=== PATIENT | female | born 1995 | race Caucasian/White ===

== ENCOUNTER 2017-10-30 12:51 | Emergency (ER) | payer MEDICAID, SELFPAY ==
[2017-10-30 13:50] VITALS: BP 116/76; PULSE 84; RESP 16; TEMP 36.8; O2SAT 99; BMI 26.1
--- NOTE | 2017-10-30 14:17 | HMH.EDUTC ---
[facility] [place] Disposition Clinical Impression: Upper respiratory infection Qualifiers: URI type: unspecified URI Qualified Code(s): J06.9 - Acute upper respiratory infection, unspecified Disposition: Home, Self-Care Condition on Discharge: Good Instructions: Cough, DI for Cough -- Adult, DI for Nasal Congestion Additional Instructions: * Monitor Temp. Tylenol and/or Ibuprofen as needed. ER if fever is no less than 101 despite alternating Tylenol and Ibuprofen * Encourage fluids, water, Gatorade, powerade, pedialyte if infant/toddler/or child * Warm salt water gargles for throat irritation *Warm fluids *Sore throat lozenges *Sleep elevated *humidifier or vaporizer Lots of rest Increase fluids, water, Gatorade, powerade *Bromfed may cause drowsiness. Know how it effect you or your child. Before driving, caring for small children or sending your child to school *Your throat swab was sent to lab for culture. Those results area typically sent to your primary care physician. Be sure to follow up in 2-3 days if no improvement so they can review those results and treat if necessary If you dont have primary care I recommend you get one, but in the mean time you will have to return to a walk in clinic Follow up IMMEDIATELY for new or worsening of symptoms OR no noticeable improvement over the next 48-72 hours. 911 immediately for any life threatening symptoms such as chest pain or difficulty breathing Prescriptions: Azithromycin [Z-Daniele 250mg Tab] 250 mg PO UD DOSE PK #6 tab Brompheniramine/Pseudoephed/Dm [Bromfed DM Cough Syrup 5mL] 10 ml PO Q4H PRN #200 syrup PRN Reason: Cough predniSONE [Prednisone 20mg Tab] 20 mg PO BID #10 tab Forms: Work/School Release Time of Disposition: 14:52 Medical Decision Making Vital Signs: 10/30/17 13:50 Temperature 98.3 F Temperature Source Temporal Artery Scan Pulse Rate [Right] 84 Respiratory Rate 16 Blood Pressure [Right Arm] 116/76 Blood Pressure Mean [Right Arm] 89 Blood Pressure Source [Right Arm] Automatic Cuff Blood Pressure Position [Right Arm] Sitting 02 Sat by Pulse Oximetry 99 Oxygen Delivery Method Room Air - Lab Data Lab Results 10/30/17 14:25: Influenza Type A Ag Negative, Influenza Type B Ag Negative Orders (Tests/Meds): ORDERS Category Date Time Status Chest XR 2 view (NOT portable) [XR chest 2V] Stat Exams 10/30/17 14:25 Taken - Radiology Data #1 Image(s): Chest Image Reviewed: Yes I reviewed the patient's radiology image Preliminary Findings: Normal/NAD (Will follow up with for official reading) - Feliberto Inquiry Pt receiving controlled substance: No Feliberto was queried for this patient: No [facility] [place] HPI - General Stated complaint: [place] congestion fever Mode of Arrival: Ambulatory Source of Information: Patient Limitations: No Limitations Description of Symptoms (Recalled from Triage Doc. 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
--- NOTE | 2017-10-30 14:25 | XR_ITS ---
XR chest 2V HISTORY: ITS.REASON: COUGH ORDERING PHYSICIAN: Sylvia Herrera PATIENT AGE: 22 years COMPARISON: 06/19/2014 FINDINGS: The cardiomediastinal silhouette and pulmonary vascularity are within normal limits. The lungs are clear without infiltrates, suspicious nodules, or pleural effusions. No acute bony abnormalities. IMPRESSION: Negative chest, no acute finding
--- NOTE | 2017-10-30 14:25 | ED_ITS ---
[facility] [place] Clinical Impression: Upper respiratory infection Qualifiers: URI type: unspecified URI Qualified Code(s): J06.9 - Acute upper respiratory infection, unspecified Disposition: Home, Self-Care Condition on Discharge: Good Instructions: Cough, DI for Cough -- Adult, DI for Nasal Congestion Additional Instructions: * Monitor Temp. Tylenol and/or Ibuprofen as needed. ER if fever is no less than 101 despite alternating Tylenol and Ibuprofen * Encourage fluids, water, Gatorade, powerade, pedialyte if infant/toddler/or child * Warm salt water gargles for throat irritation *Warm fluids *Sore throat lozenges *Sleep elevated *humidifier or vaporizer Lots of rest Increase fluids, water, Gatorade, powerade *Bromfed may cause drowsiness. Know how it effect you or your child. Before driving, caring for small children or sending your child to school *Your throat swab was sent to lab for culture. Those results area typically sent to your primary care physician. Be sure to follow up in 2-3 days if no improvement so they can review those results and treat if necessary If you don? t have primary care I recommend you get one, but in the mean time you will have to return to a walk in clinic Follow up IMMEDIATELY for new or worsening of symptoms OR no noticeable improvement over the next 48-72 hours. 911 immediately for any life threatening symptoms such as chest pain or difficulty breathing Prescriptions: Azithromycin [Z-Daniele 250mg Tab] 250 mg PO UD DOSE PK #6 tab Brompheniramine/Pseudoephed/Dm [Bromfed DM Cough Syrup 5mL] 10 ml PO Q4H PRN # 200 syrup PRN Reason: Cough predniSONE [Prednisone 20mg Tab] 20 mg PO BID #10 tab Forms: Work/School Release Time of Disposition: 14:52 Medical Decision Making Vital Signs: 10/30/17 13:50 Temperature 98.3 F Temperature Source Temporal Artery Scan Pulse Rate [Right] 84 Respiratory Rate 16 Blood Pressure [Right Arm] 116/76 Blood Pressure Mean [Right Arm] 89 Blood Pressure Source [Right Arm] Automatic Cuff Blood Pressure Position [Right Arm] Sitting 02 Sat by Pulse Oximetry 99 Oxygen Delivery Method Room Air - Lab Data Lab Results 10/30/17 14:25: Influenza Type A Ag Negative, Influenza Type B Ag Negative Orders (Tests/Meds): ORDERS Category Date Time Status Chest XR 2 view (NOT portable) [XR chest 2V] Stat Exams 10/30/17 14:25 Taken - Radiology Data #1 Image(s): Chest Image Reviewed: Yes I reviewed the patient's radiology image Preliminary Findings: Normal/NAD (Will follow up with for official reading) - Feliberto Inquiry Pt receiving controlled substance: No Feliberto was queried for this patient: No [facility] [place] - General Stated complaint: [place] congestion fever Mode of Arrival: Ambulatory Source of Information: Patient Limitations: No Limitations Description of Symptoms (Recalled from Triage Doc. by RN): COUGH, CONGESTION ACHES X2 DAYS HEENT Symptoms (Recalled from RN notes): Yes Resp Symptoms (Recalled from RN notes): No Skin Symptoms (Recalled from RN notes): No MS Symptoms (Recalled from RN notes): No Functional Status (Recalled from RN notes): N - History of Present Illness Provider Complaint: Patient state that she has been having cough and congestion that has continued to get worse State that she feels like she may have some chest congestion, non-productive cough, sinus pain and pressure along with sore throat State that she works
[2017-10-30 14:41] LABS: UTC Influenza A Antigen Negative (Negative); UTC Influenza B Antigen Negative (Negative)
== END 2017-10-30 14:57 | disposition home or self-care (01) ==
PROVIDERS: Emergency Provider Nurse Practitioner; Family Provider Family Medicine
DX: J06.9 Acute upper respiratory infection, unspecified (principal)
CPT/HCPCS: 71046; 87804; 99202

== ENCOUNTER 2017-11-21 20:14 | Emergency (ER) | payer BC, MEDICAID, SELFPAY ==
[2017-11-21 21:18] VITALS: BP 140/89; PULSE 96; RESP 20; TEMP 36.8; O2SAT 100; BMI 24.2
--- NOTE | 2017-11-21 21:43 | HMH.EDUTC ---
[facility] [place] Disposition Clinical Impression: Rib pain on right side Disposition: Home, Self-Care Condition on Discharge: Good Additional Instructions: Take medication as prescribed Follow up with family doctor If pain persists Follow up with family doctor for rib xray as advised today in [facility] or return for xray Return to [facility] if needed Prescriptions: Ibuprofen [Ibuprofen 800mg Tab] 800 mg PO Q8HP PRN #20 tab PRN Reason: Moderate Pain Cyclobenzaprine HCl [Flexeril 10mg tablet] 10 mg PO TID PRN #15 tab PRN Reason: Muscle Spasm Forms: Work/School Release Time of Disposition: 21:58 Medical Decision Making - Medical Records Medical records reviewed: Yes: I reviewed the patient's medical records. Vital Signs: 11/21/17 21:18 Temperature 98.3 F Temperature Source Temporal Artery Scan Pulse Rate [Right] 96 H Respiratory Rate 20 Blood Pressure [Right Arm] 140/89 Blood Pressure Mean [Right Arm] 106 Blood Pressure Source [Right Arm] Automatic Cuff Blood Pressure Position [Right Arm] Sitting 02 Sat by Pulse Oximetry 100 Oxygen Delivery Method Room Air - Feliberto Inquiry Pt receiving controlled substance: No Feliberto was queried for this patient: No - Reevaluation(s) Time: 21:53 (Recommended rib xray, patient denies injury and refused State that she feels like she has a pulled muscle) [facility] [place] HPI - General Stated complaint: Rib Pain Mode of Arrival: Ambulatory Source of Information: Patient Limitations: No Limitations Description of Symptoms (Recalled from Triage Doc. by RN): RIB PAIN X3 WKS, DENIES INJURY HEENT Symptoms (Recalled from RN notes): No Resp Symptoms (Recalled from RN notes): No Skin Symptoms (Recalled from RN notes): No MS Symptoms (Recalled from RN notes): Yes Functional Status (Recalled from RN notes): N - History of Present Illness Provider Complaint: Patient state that she lifts and pulls at work States that she has noticed that for the last 3 weeks she has been having pian in her right side/rib area States that it feels like a pulled muscle States that she noticed a small bruise on her right ribs but does not recall hitting anything, denies trouble breathing states that pain worse when she touches area or lifts her hands Denies known injury - Related Data Previous Rx's Medication Instructions Recorded Azithromycin [Z-Daniele 250mg Tab] 250 mg PO UD DOSE PK #6 tab 10/30/17 Brompheniramine/Pseudoephed/Dm 10 ml PO Q4H PRN #200 syrup 10/30/17 [Bromfed DM Cough Syrup 5mL] predniSONE [Prednisone 20mg 20 mg PO BID #10 tab 10/30/17 Tab] Cyclobenzaprine HCl [Flexeril 10mg 10 mg PO TID PRN #15 tab 11/21/17 tablet] Ibuprofen [Ibuprofen 800mg Tab] 800 mg PO Q8HP PRN #20 tab 11/21/17 Allergies Allergy/AdvReac Type Severity Reaction Status Date / Time No Known Allergies Allergy Verified 10/30/17 13:54 - Worker's Comp Is this a Worker's Comp case?: No [facility] History I have reviewed the patient's past medical history: Yes Other Surgeries: Yes: No Previous Surgery - *Social History Smoking Status: Never smoker Alcohol Intake: never - Psychiatric History Expresses thoughts of harming self/others: None Suicide Plan Description: No Plan *Family Hx:: Cancer ROS Obtained: Yes All systems reviewed & no additional complaints Physical Exam - General General appearance: alert, in no apparent distress - ENT ENT exam: Present: normal exam - Chest Chest inspection: Present: other - Expanded Chest Exam Comment: Small quarter sized area on right lower rib area that appears to be healing bruise yellowish green in color, no swelling no deformities - Respiratory Respiratory exam: Present: normal lung sounds bilaterally. Absent: respiratory distress - Cardiovascular Cardiovascular exam: Present: regular rate, normal rhythm. Absent: JVD - Abdominal Exam Abdominal exam: Present: soft, normal bowel sounds. Absent: distention, tenderness, guarding - Neurological Exam
--- NOTE | 2017-11-21 21:51 | ED_ITS ---
[facility] [place] Disposition Clinical Impression: Rib pain on right side Disposition: Home, Self-Care Condition on Discharge: Good Additional Instructions: Take medication as prescribed Follow up with family doctor If pain persists Follow up with family doctor for rib xray as advised today in [facility] or return for xray Return to [facility] if needed Prescriptions: Ibuprofen [Ibuprofen 800mg Tab] 800 mg PO Q8HP PRN #20 tab PRN Reason: Moderate Pain Cyclobenzaprine HCl [Flexeril 10mg tablet] 10 mg PO TID PRN #15 tab PRN Reason: Muscle Spasm Forms: Work/School Release Time of Disposition: 21:58 Medical Decision Making - Medical Records Medical records reviewed: Yes: I reviewed the patient's medical records. Vital Signs: 11/21/17 21:18 Temperature 98.3 F Temperature Source Temporal Artery Scan Pulse Rate [Right] 96 H Respiratory Rate 20 Blood Pressure [Right Arm] 140/89 Blood Pressure Mean [Right Arm] 106 Blood Pressure Source [Right Arm] Automatic Cuff Blood Pressure Position [Right Arm] Sitting 02 Sat by Pulse Oximetry 100 Oxygen Delivery Method Room Air - Feliberto Inquiry Pt receiving controlled substance: No Feliberto was queried for this patient: No - Reevaluation(s) Time: 21:53 (Recommended rib xray, patient denies injury and refused State that she feels like she has a pulled muscle) [facility] [place] HPI - General Stated complaint: Rib Pain Mode of Arrival: Ambulatory Source of Information: Patient Limitations: No Limitations Description of Symptoms (Recalled from Triage Doc. by RN): RIB PAIN X3 WKS, DENIES INJURY HEENT Symptoms (Recalled from RN notes): No Resp Symptoms (Recalled from RN notes): No Skin Symptoms (Recalled from RN notes): No MS Symptoms (Recalled from RN notes): Yes Functional Status (Recalled from RN notes): N - History of Present Illness Provider Complaint: Patient state that she lifts and pulls at work States that she has noticed that for the last 3 weeks she has been having pian in her right side/rib area States that it feels like a pulled muscle States that she noticed a small bruise on her right ribs but does not recall hitting anything, denies trouble breathing states that pain worse when she touches area or lifts her hands Denies known injury - Related Data Previous Rx's Medication Instructions Recorded Azithromycin [Z-Daniele 250mg Tab] 250 mg PO UD DOSE PK #6 tab 10/30/17 Brompheniramine/Pseudoephed/Dm 10 ml PO Q4H PRN #200 syrup 10/30/17 [Bromfed DM Cough Syrup 5mL] predniSONE [Prednisone 20mg 20 mg PO BID #10 tab 10/30/17 Tab] Cyclobenzaprine HCl [Flexeril 10mg 10 mg PO TID PRN #15 tab 11/21/17 tablet] Ibuprofen [Ibuprofen 800mg Tab] 800 mg PO Q8HP PRN #20 tab 11/21/17 Allergies Allergy/AdvReac Type Severity Reaction Status Date / Time No Known Allergies Allergy Verified 10/30/17 13:54 - Worker's Comp Is this a Worker's Comp case?: No [facility] History I have reviewed the patient's past medical history: Yes Other Surgeries: Yes: No Previous Surgery - *Social History Smoking Status: Never smoker Alcohol Intake: never - Psychiatric History Expresses thoughts of harming self/others: None Suicide Plan Description: No Plan *Family Hx:: Cancer ROS Obtained: Yes All systems reviewed & no additional complaints Physical Exam - General
== END 2017-11-21 21:48 | disposition home or self-care (01) ==
PROVIDERS: Emergency Provider Nurse Practitioner; Family Provider Family Medicine
DX: R07.81 Pleurodynia (principal)
CPT/HCPCS: 99201

== ENCOUNTER 2017-12-04 22:43 | Emergency (ER) | payer BC, MEDICAID, SELFPAY ==
[2017-12-04 22:47] VITALS: BP 140/73; PULSE 82; RESP 16; TEMP 36.7; O2SAT 99; BMI 23.3
--- NOTE | 2017-12-04 22:52 | CT_ITS ---
CT sinus wo con CLINICAL INDICATION: Severe frontal headache, possible sinus disease ITS.REASON: HEADACHE ORDERING PHYSICIAN: Kimo Oconnor MD PATIENT AGE: 22 years COMPARISON: None TECHNIQUE:Axial, sagittal, and coronal images are generated and reviewed without contrast COMPARISON: None FINDINGS: There is complete opacification of the left maxillary sinus. The sphenoid, ethmoid, and frontal sinuses are unremarkable. As obstruction of the left ostiomeatal complex with mild leftward nasal septal deviation noted. There are scattered small nodes in neck and the orbits have an unremarkable appearance as do the mastoid sinuses. IMPRESSION: Left maxillary sinusitis with obstructed ostiomeatal unit and mild leftward nasal septal deviation
--- NOTE | 2017-12-04 22:52 | CT_ITS ---
CT head/brain wo con HISTORY: Severe headache ITS.REASON: HEADACHE ORDERING PHYSICIAN: Kimo Oconnor MD PATIENT AGE: 22 years COMPARISON: None TECHNIQUE: Axial images obtained without contrast. Brain and bone windows reviewed. FINDINGS: No midline shift, mass effect, intracranial hemorrhage, hydrocephalus, or extra-axial fluid collection is evident. The calvarium has an unremarkable appearance. No mastoid effusion. Opacified left maxillary sinus... IMPRESSION: 1. No acute intracranial findings. 2. Left maxillary sinus opacification incompletely imaged. Consider maxillofacial CT for further evaluation
[2017-12-04 23:07] LABS: Microscopic, Urine URINE MICROSCOPIC (MICROSCOPIC)
[2017-12-04 23:09] LABS: Appearance,Urine CLEAR (Clear); Bilirubin,Urine Negative (Negative); Blood, Urine Negative (Negative); Color,Urine YELLOW (Yellow); Glucose,Urine (UA) Negative (Negative); Ketones,Urine Negative (Negative); Leukocyte Esterase,Urine Negative (Negative); Nitrate,Urine Negative (Negative); Protein,Urine Negative (Negative); Urobilinogen,Urine 0.2 EU/dl (0.2)
[2017-12-04 23:10] LABS: Basophils # 0.1 K/mm3 (0-0.2); Basophils % 0.7 % (0.1-2.0); Eosinophils # 0.3 K/mm3 (0.0-0.4); Eosinophils % 3.1 % (0.1-12.0); Hematocrit 37.5 % (37.0-47.0); Hemoglobin 12.4 g/dL (12.2-16.2); Lymphocytes # 2.8 K/mm3 (0.7-4.5); Lymphocytes % 34.8 K/mm3 (10-50); Mean Corpuscular HGB Conc 33.1 g/dL (31.8-35.4); Mean Corpuscular Volume 93.4 fl (81-99); Mean Platelet Volume 9.4 fl (7.4-10.4); Monocytes # 0.6 K/mm3 (0.1-1.0); Monocytes % 7.1 % (1.7-9.3); Neutrophils # 4.4 K/mm3 (1.8-7.8); Neutrophils % 54.3 % (37.0-80.0); Platelet Count 256 K/mm3 (142-424); Red Blood Count 4.01 M/mm3 (4.20-5.40); Red Cell Distribution Width 11.7 % (11.5-17.5); White Blood Count 8.1 K/mm3 (4.8-10.8)
[2017-12-04 23:16] LABS: Urine Pregnancy, HCG Qual. Negative (Negative)
[2017-12-04 23:26] LABS: Alanine Aminotransferase 17 U/L (12-78); Albumin Level 4.4 gm/dL (3.4-5.0); Albumin/Globulin Ratio 1.4 (1.1-1.8); Alkaline Phosphatase 47 U/L (46-116); Anion Gap 10.2 mEq/L (5-15); Aspartate Amino Transferase 12 U/L (15-37); Bilirubin,Total 0.2 mg/dL (0.2-1.0); Blood Urea Nitrogen 8 mg/dL (7-18); Calcium 8.8 mg/dL (8.5-10.1); Carbon Dioxide 29 mmol/L (21.0-32.0); Chloride 106 mmol/L (98-107); Creatinine Clearance Estimated 127 mL/min (0-300); Creatinine,Serum 0.71 mg/dL (0.55-1.02); Estimated Glomerular Filt Rate 101 ml/min (>60); GFR (African American) 122 ML/MIN (>60); Globulin 3.2 gm/dl (1.3-3.2); Glucose 105 mg/dL (74-106); Potassium 3.2 mmoL/L (3.5-5.1); Sodium 142 mmol/L (136-145); Total Protein,Serum 7.6 gm/dL (6.4-8.2)
--- NOTE | 2017-12-04 23:54 | HMH.EDHA ---
ED Disposition Clinical Impression: Sinusitis Qualifiers: Sinusitis location: maxillary Chronicity: unspecified Qualified Code(s): J32.0 - Chronic maxillary sinusitis Headache Qualifiers: Headache type: unspecified Headache chronicity pattern: acute headache Intractability: not intractable Qualified Code(s): R51 - Headache Disposition: Home, Self-Care Condition on Discharge: Good Instructions: DI for Sinus Headache Additional Instructions: see ent for follow up Prescriptions: cephALEXin [Keflex 500mg Cap] 500 mg PO TID #30 cap Referrals: Marc Geller MD [Staff Physician] - - Critical Care Critical Care Time: No Attestation: On 12/04/17, the high probability of a clinically significant, sudden or life threatening deterioration of the following system(s) required my full and direct attention, intervention and personal management. The time I documented below is in addition to time spent performing reported procedures but includes the following listed in this critical care notation. Medical Decision Making - Medical Records Medical records reviewed: Yes: I reviewed the patient's medical records. Vital Signs: 12/04/17 22:47 Temperature 98.1 F Temperature Source Oral Pulse Rate [Right Brachial] 82 Respiratory Rate 16 Blood Pressure [Right Arm] 140/73 Blood Pressure Mean [Right Arm] 95 Blood Pressure Source [Right Arm] Automatic Cuff Blood Pressure Position [Right Arm] Sitting 02 Sat by Pulse Oximetry 99 - Lab Data Lab results reviewed: Yes: I reviewed the patient's lab results. Lab Results 12/04/17 22:55: WBC 8.1, RBC 4.01 L, Hgb 12.4, Hct 37.5, MCV 93.4, MCH 31.0, MCHC 33.1, RDW 11.7, Plt Count 256, MPV 9.4, Neut % (Auto) 54.3, Lymph % (Auto) 34.8, [place] % (Auto) 7.1, Eos % (Auto) 3.1, Baso % (Auto) 0.7, Neut # (Auto) 4.4, Lymph # (Auto) 2.8, [place] # (Auto) 0.6, Eos # (Auto) 0.3, Baso # (Auto) 0.1 12/04/17 22:55: Urine HCG, Qual Negative 12/04/17 22:55: Sodium 142, Potassium 3.2 L, Chloride 106, Carbon Dioxide 29, Anion Gap 10.2, BUN 8, Creatinine 0.71, Estimated Creat Clear 127, Estimated GFR 101, Est GFR ( Amer) 122, Glucose 105, Calcium 8.8, Total Bilirubin 0.2, AST 12 L, ALT 17, Alkaline Phosphatase 47, Total Protein 7.6, Albumin 4.4, Globulin 3.2, Albumin/Globulin Ratio 1.4 12/04/17 23:01: Urine Color Yellow, Urine Appearance Clear, Urine pH 6.0, Ur Specific [place] 1.020, Urine Protein Negative, Urine Glucose (UA) Negative, Urine Ketones Negative, Urine Blood Negative, Urine Nitrate Negative, Urine Bilirubin Negative, Urine Urobilinogen 0.2, Ur Leukocyte Esterase Negative Result diagrams: 12/04/17 22:55 12/04/17 22:55 Orders (Tests/Meds): ED MEDICATIONS Generic Name Dose Route Start Last Admin Trade Name Freq PRN Reason Stop Dose Admin Ceftriaxone Sodium 1 gm/ 50 mls @ 100 mls/hr 12/05/17 00:04 12/05/17 00:12 Sodium Chloride IV 12/05/17 00:33 100 mls/hr ONCE ONE Administration Discontinued Medications Generic Name Dose Route Start Last Admin Trade Name Freq PRN Reason Stop Dose Admin Sodium Chloride 1,000 mls @ 999 mls/hr 12/04/17 23:15 12/04/17 23:05 Sod Chlor 0.9% 1000ml Bag IV 12/05/17 00:15 999 mls/hr .Q1H1M SOUTH Administration Ketorolac Tromethamine 30 mg 12/05/17 00:05 12/05/17 00:12 Toradol 30mg/Ml Vial IV 12/05/17 00:06 30 mg ONCE ONE Administration Methylprednisolone Sodium Succinate 125 mg 12/05/17 00:05 12/05/17 00:12 Solu-Medrol 125mg/2ml Vial IV 12/05/17 00:06 125 mg ONCE ONE Administration ORDERS Category Date Time Status CT head/brain wo con Stat Cat Scan 12/04/17 22:[address] sinus wo con Stat Cat Scan 12/04/17 22:52 Taken Monoscreen (Rapid) Stat Lab 12/05/17 00:02 Ordered Rapid Influenza A&B Antigens Stat Lab 12/04/17 00:00 Received Urinalysis and Microscopic Stat Lab 12/04/17 23:01 Results - CT Data CT Scan: Head, Sinus Time Received: 00:[address] Reviewed: Yes: I have viewed the ra
--- NOTE | 2017-12-05 00:02 | ED_ITS ---
ED Disposition Clinical Impression: Sinusitis Qualifiers: Sinusitis location: maxillary Chronicity: unspecified Qualified Code(s): J32.0 - Chronic maxillary sinusitis Headache Qualifiers: Headache type: unspecified Headache chronicity pattern: acute headache Intractability: not intractable Qualified Code(s): R51 - Headache Disposition: Home, Self-Care Condition on Discharge: Good Instructions: DI for Sinus Headache Additional Instructions: see ent for follow up Prescriptions: cephALEXin [Keflex 500mg Cap] 500 mg PO TID #30 cap Referrals: Marc Geller MD [Staff Physician] - - Critical Care Critical Care Time: No Attestation: On 12/04/17, the high probability of a clinically significant, sudden or life threatening deterioration of the following system(s) required my full and direct attention, intervention and personal management. The time I documented below is in addition to time spent performing reported procedures but includes the following listed in this critical care notation. Medical Decision Making - Medical Records Medical records reviewed: Yes: I reviewed the patient's medical records. Vital Signs: 12/04/17 22:47 Temperature 98.1 F Temperature Source Oral Pulse Rate [Right Brachial] 82 Respiratory Rate 16 Blood Pressure [Right Arm] 140/73 Blood Pressure Mean [Right Arm] 95 Blood Pressure Source [Right Arm] Automatic Cuff Blood Pressure Position [Right Arm] Sitting 02 Sat by Pulse Oximetry 99 - Lab Data Lab results reviewed: Yes: I reviewed the patient's lab results. Lab Results 12/04/17 22:55: WBC 8.1, RBC 4.01 L, Hgb 12.4, Hct 37.5, MCV 93.4, MCH 31.0, MCHC 33.1, RDW 11.7, Plt Count 256, MPV 9.4, Neut % (Auto) 54.3, Lymph % (Auto) 34.8, [place] % (Auto) 7.1, Eos % (Auto) 3.1, Baso % (Auto) 0.7, Neut # (Auto) 4.4 , Lymph # (Auto) 2.8, [place] # (Auto) 0.6, Eos # (Auto) 0.3, Baso # (Auto) 0.1 12/04/17 22:55: Urine HCG, Qual Negative 12/04/17 22:55: Sodium 142, Potassium 3.2 L, Chloride 106, Carbon Dioxide 29, Anion Gap 10.2, BUN 8, Creatinine 0.71, Estimated Creat Clear 127, Estimated GFR 101, Est GFR ( Amer) 122, Glucose 105, Calcium 8.8, Total Bilirubin 0.2, AST 12 L, ALT 17, Alkaline Phosphatase 47, Total Protein 7.6, Albumin 4.4, Globulin 3.2, Albumin/Globulin Ratio 1.4 12/04/17 23:01: Urine Color Yellow, Urine Appearance Clear, Urine pH 6.0, Ur Specific [place] 1.020, Urine Protein Negative, Urine Glucose (UA) Negative, Urine Ketones Negative, Urine Blood Negative, Urine Nitrate Negative, Urine Bilirubin Negative, Urine Urobilinogen 0.2, Ur Leukocyte Esterase Negative Result diagrams: 12/04/17 22:55 12/04/17 22:55 Orders (Tests/Meds): ED MEDICATIONS Generic Name Dose Route Start Last Admin Trade Name Freq PRN Reason Stop Dose Admin Ceftriaxone Sodium 1 gm/ 50 mls @ 100 mls/hr 12/05/17 00:04 12/05/17 00:12 Sodium Chloride IV 12/05/17 00:33 100 mls/hr ONCE ONE Administration Discontinued Medications Generic Name Dose Route Start Last Admin Trade Name Freq PRN Reason Stop Dose Admin Sodium Chloride 1,000 mls @ 999 mls/hr 12/04/17 23:15 12/04/17 23:05 Sod Chlor 0.9% 1000ml Bag IV 12/05/17 00:15 999 mls/hr .Q1H1M SOUTH Administration Ketorolac Tromethamine 30 mg 12/05/17 00:05 12/05/17 00:12 Toradol 30mg/Ml Vial IV 12/05/17 00:06 30 mg ONCE ONE Administration Meth
[2017-12-05 00:31] VITALS: BP 140/73; PULSE 82; RESP 16; TEMP 36.7
[2017-12-05 00:33] LABS: Monoscreen (Rapid) Negative (Negative)
[2017-12-05 01:03] LABS: Bacteria,Urine 1+ /lpf
== END 2017-12-05 00:33 | disposition home or self-care (01) ==
PROVIDERS: Emergency Provider Emergency Medicine; Family Provider Family Medicine
DX: J32.0 Chronic maxillary sinusitis (principal)
CPT/HCPCS: 70450; 70486; 80053; 81001; 81025; 85025; 86318; 87275; 87276; 96365; 96366; 96367; 96375; 99283

== ENCOUNTER 2018-01-02 14:14 | Emergency (ER) | payer BC, MEDICAID, SELFPAY ==
[2018-01-02 14:26] VITALS: BP 124/79; PULSE 120; RESP 20; TEMP 37.6; O2SAT 98; BMI 25.0
--- NOTE | 2018-01-02 14:38 | HMH.EDUTC ---
[facility] [place] Clinical Impression: Viral illness Disposition: Home, Self-Care Condition on Discharge: Good Instructions: Common Cold, DI for Viral Upper Respiratory Infection -- Adult Additional Instructions: * Monitor Temp. Tylenol and/or Ibuprofen as needed. ER if fever is no less than 101 despite alternating Tylenol and Ibuprofen * Encourage fluids, water, Gatorade, powerade, pedialyte if infant/toddler/or child * Warm salt water gargles for throat irritation *Warm fluids *Sore throat lozenges *Sleep elevated *humidifier or vaporizer Lots of rest Increase fluids, water, Gatorade, powerade *Bromfed may cause drowsiness. Know how it effect you or your child. Before driving, caring for small children or sending your child to school *Your throat swab was sent to lab for culture. Those results area typically sent to your primary care physician. Be sure to follow up in 2-3 days if no improvement so they can review those results and treat if necessary If you dont have primary care I recommend you get one, but in the mean time you will have to return to a walk in clinic Follow up IMMEDIATELY for new or worsening of symptoms OR no noticeable improvement over the next 48-72 hours. 911 immediately for any life threatening symptoms such as chest pain or difficulty breathing Prescriptions: Brompheniramine/Pseudoephed/Dm [Bromfed DM Cough Syrup 5mL] 10 ml PO Q4HP PRN #350 ml PRN Reason: Cough Referrals: Daniel Blevins MD [Primary Care Provider] - As needed (in 12-48 hours if no improvement or worsening of symptoms) Forms: Work/School Release Time of Disposition: 14:50 Medical Decision Making - Medical Records Medical records reviewed: Yes: I reviewed the patient's medical records. - Feliberto Inquiry Pt receiving controlled substance: No Feliberto was queried for this patient: No Vital Signs: 01/02/18 14:26 Temperature 99.6 F Temperature Source Temporal Artery Scan Pulse Rate [Right] 120 H Respiratory Rate 20 Blood Pressure [Right Arm] 124/79 Blood Pressure Mean [Right Arm] 94 Blood Pressure Source [Right Arm] Automatic Cuff Blood Pressure Position [Right Arm] Sitting 02 Sat by Pulse Oximetry 98 Oxygen Delivery Method Room Air - Lab Data Lab results reviewed: Yes: I reviewed the patient's lab results. [facility] [place] H[place] - General Stated complaint: sore throat Time Seen by Provider: 01/02/18 14:38 Mode of Arrival: Ambulatory Source of Information: Patient Limitations: No Limitations Description of Symptoms (Recalled from Triage Doc. by RN): CONGESTION, SORE THROAT, BODY ACHES HEENT Symptoms (Recalled from RN notes): Yes Resp Symptoms (Recalled from RN notes): No Skin Symptoms (Recalled from RN notes): No MS Symptoms (Recalled from RN notes): No Functional Status (Recalled from RN notes): N - History of Present Illness Provider Complaint: Pateint state that she has been having cough, congestion, body aches and chills State that she was recently seen and started on Antibiotics by Dr Geller State that she is not sure if she may have the flu or not and wanted to get checked out - Related Data Home Medications Medication Instructions Recorded Confirmed cephALEXin [Keflex 500mg Cap] 500 mg PO Q8H MDD 4000 01/02/18 01/02/18 Previous Rx's Medication Instructions Recorded Ibuprofen [Ibuprofen 800mg Tab] 800 mg PO Q8HP PRN #20 tab 11/21/17 fluticasone 50 mcg/actuation nasal 1 spray INTRANASAL ONCE 30 Days 12/31/17 spray,suspension #16 g montelukast 10 mg tablet 10 mg PO ONCE #30 tab 12/31/17 Brompheniramine/Pseudoephed/Dm 10 ml PO Q4HP PRN #350 ml 01/02/18 [Bromfed DM Cough Syrup 5mL] Allergies Allergy/AdvReac Type Severity Reaction Status Date / Time No Known Allergies Allergy Verified 12/31/17 15:24 - Worker's Comp Is this a Worker's Comp case?: No H History I have reviewed the patient's past medical history: Yes Medical History: Denies:: Diabetes Mellitus Type 1, Diabetes Mellitus
--- NOTE | 2018-01-02 14:44 | ED_ITS ---
[facility] [place] Clinical Impression: Viral illness Disposition: Home, Self-Care Condition on Discharge: Good Instructions: Common Cold, DI for Viral Upper Respiratory Infection -- Adult Additional Instructions: * Monitor Temp. Tylenol and/or Ibuprofen as needed. ER if fever is no less than 101 despite alternating Tylenol and Ibuprofen * Encourage fluids, water, Gatorade, powerade, pedialyte if infant/toddler/or child * Warm salt water gargles for throat irritation *Warm fluids *Sore throat lozenges *Sleep elevated *humidifier or vaporizer Lots of rest Increase fluids, water, Gatorade, powerade *Bromfed may cause drowsiness. Know how it effect you or your child. Before driving, caring for small children or sending your child to school *Your throat swab was sent to lab for culture. Those results area typically sent to your primary care physician. Be sure to follow up in 2-3 days if no improvement so they can review those results and treat if necessary If you don? t have primary care I recommend you get one, but in the mean time you will have to return to a walk in clinic Follow up IMMEDIATELY for new or worsening of symptoms OR no noticeable improvement over the next 48-72 hours. 911 immediately for any life threatening symptoms such as chest pain or difficulty breathing Prescriptions: Brompheniramine/Pseudoephed/Dm [Bromfed DM Cough Syrup 5mL] 10 ml PO Q4HP PRN # 350 ml PRN Reason: Cough Referrals: Daniel Blevins MD [Primary Care Provider] - As needed (in 12-48 hours if no improvement or worsening of symptoms) Forms: Work/School Release Time of Disposition: 14:50 Medical Decision Making - Medical Records Medical records reviewed: Yes: I reviewed the patient's medical records. - Feliberto Inquiry Pt receiving controlled substance: No Feliberto was queried for this patient: No Vital Signs: 01/02/18 14:26 Temperature 99.6 F Temperature Source Temporal Artery Scan Pulse Rate [Right] 120 H Respiratory Rate 20 Blood Pressure [Right Arm] 124/79 Blood Pressure Mean [Right Arm] 94 Blood Pressure Source [Right Arm] Automatic Cuff Blood Pressure Position [Right Arm] Sitting 02 Sat by Pulse Oximetry 98 Oxygen Delivery Method Room Air - Lab Data Lab results reviewed: Yes: I reviewed the patient's lab results. [facility] [place] HPI - General Stated complaint: sore throat Time Seen by Provider: 01/02/18 14:38 Mode of Arrival: Ambulatory Source of Information: Patient Limitations: No Limitations Description of Symptoms (Recalled from Triage Doc. by RN): CONGESTION, SORE THROAT, BODY ACHES HEENT Symptoms (Recalled from RN notes): Yes Resp Symptoms (Recalled from RN notes): No Skin Symptoms (Recalled from RN notes): No MS Symptoms (Recalled from RN notes): No Functional Status (Recalled from RN notes): N - History of Present Illness Provider Complaint: Pateint state that she has been having cough, congestion, body aches and chills State that she was recently seen and started on Antibiotics by Dr Geller State that she is not sure if she may have the flu or not and wanted to get checked out - Related Data Home Medications Medication Instructions Recorded Confirmed cephALEXin [Keflex 500mg Cap] 500 mg PO Q8H MDD 4000 01/02/18 01/02/18 Previous Rx's Medication Instructions Recorded Ibuprofen [Ibuprofen 800mg Tab] 800 mg PO Q8HP PRN #20 tab 11/21/17 fluticasone 50 mcg/actuation nasal 1 s
[2018-01-02 14:51] LABS: UTC Influenza A Antigen Negative (Negative); UTC Influenza B Antigen Negative (Negative); UTC Strep Screen (Rapid) Negative (Negative)
[2018-01-02 14:56] VITALS: BP 124/79; PULSE 110; RESP 20; TEMP 37.6
== END 2018-01-02 14:57 | disposition home or self-care (01) ==
PROVIDERS: Emergency Provider Nurse Practitioner; Family Provider Family Medicine; PCP Family Medicine
DX: B34.9 Viral infection, unspecified (principal)
CPT/HCPCS: 87804; 87880; 99202

== ENCOUNTER 2019-04-12 08:45 | Emergency (ER) | payer BC, SELFPAY ==
[2019-04-12 08:55] VITALS: BP 121/69; PULSE 86; RESP 16; TEMP 36.9; O2SAT 98; BMI 20.9
--- NOTE | 2019-04-12 08:59 | HMH.EDABDPAI ---
ED Disposition Clinical Impression: Ruptured ovarian cyst, Proteinuria, PID (acute pelvic inflammatory disease) Disposition: Home, Self-Care Condition on Discharge: Fair Additional Instructions: 1- start abx as we discussed. 2- need follow up with Dr Savage on Sunday. 3- Needs to see a webmethods consultant for hematuria. 4- indocin prn pain 5- to retur for fever, vomiting or any new sx. Prescriptions: Indomethacin [Indocin 25mg capsule] 25 mg PO Q8HP PRN #15 cap PRN Reason: Moderate To Severe Pain metroNIDAZOLE [Flagyl 500mg Tablet] 500 mg PO BID #28 tab Azithromycin [Zithromax 250mg tab] 250 mg PO DAILY #14 tab Referrals: Provider,Referral, MD [Primary Care Provider] - - Critical Care Critical Care Time: No Attestation: On 04/12/19, the high probability of a clinically significant, sudden or life threatening deterioration of the following system(s) required my full and direct attention, intervention and personal management. The time I documented below is in addition to time spent performing reported procedures but includes the following listed in this critical care notation. Medical Decision Making - Medical Records Medical records reviewed: Yes: I reviewed the patient's medical records. - Feliberto Inquiry Pt receiving controlled substance: No Feliberto was queried for this patient: No Vital Signs: 04/12/19 08:55 04/12/19 11:11 Temperature 98.4 F 98.7 F Temperature Source Oral Oral Pulse Rate [Left Radial] 86 61 Respiratory Rate 16 Blood Pressure [Right Arm] 121/69 105/65 L Blood Pressure Mean [Right Arm] 86 78 Blood Pressure Source [Right Arm] Automatic Cuff Automatic Cuff Blood Pressure Position [Right Arm] Sitting Sitting 02 Sat by Pulse Oximetry 98 99 Oxygen Delivery Method Room Air Room Air - Lab Data Lab Results 04/12/19 08:50: Urine Color Yellow, Urine Appearance Clear, Urine pH 6.0, Ur Specific [place] 1.020, Urine Protein 2+, Urine Glucose (UA) Negative, Urine Ketones Negative, Urine Blood Trace-i, Urine Nitrate Negative, Urine Bilirubin Negative, Urine Urobilinogen 0.2, Ur Leukocyte Esterase Negative, Urine RBC Occasional, Urine WBC 5-10, Ur Squamous Epith Cells 10-20, Urine Bacteria 2+ 04/12/19 08:50: Urine HCG, Qual Negative 04/12/19 09:05: WBC 12.4 H, RBC 4.45, Hgb 12.8, Hct 41.4, MCV 93.1, MCH 28.8, MCHC 31.0 L, RDW 12.4, Plt Count 267, MPV 8.9, Neut % (Auto) 71.1, Lymph % (Auto) 18.0, [place] % (Auto) 9.2, Eos % (Auto) 1.2, Baso % (Auto) 0.5, Neut # (Auto) 8.8 H, Lymph # (Auto) 2.2, [place] # (Auto) 1.2 H, Eos # (Auto) 0.2, Baso # (Auto) 0.1 04/12/19 09:05: Sodium 143, Potassium 3.9, Chloride 106, Carbon Dioxide 27, Anion Gap 13.9, BUN 9, Creatinine 0.81, Estimated Creat Clear 98, Estimated GFR 85, Est GFR ( Amer) 103, Glucose 89, Calcium 8.4 L, Total Bilirubin 0.7, AST 10 L, ALT 14, Alkaline Phosphatase 39 L, Total Protein 6.8, Albumin 3.8, Globulin 3.0, Albumin/Globulin Ratio 1.3, Lipase 141 Result diagrams: 04/12/19 09:05 04/12/19 09:05 Orders (Tests/Meds): ED MEDICATIONS Discontinued Medications Generic Name Dose Route Start Last Admin Trade Name Freq PRN Reason Stop Dose Admin Famotidine 20 mg 04/12/19 09:13 04/12/19 09:18 Pepcid 20mg/2ml Vial IV 04/12/19 09:14 20 mg ONCE ONE Administration Ioversol 75 ml 04/12/19 09:54 04/12/19 09:55 Rad-Optiray 350 100ml Vial IV 04/12/19 09:55 75 ml ONCE ONE Administration Protocol Ketorolac Tromethamine 30 mg 04/12/19 09:13 04/12/19 09:18 Toradol 30mg/Ml Vial IV 04/12/19 09:14 30 mg ONCE ONE Administration Sodium Chloride 10 ml 04/12/19 09:54 04/12/19 09:55 Rad-Saline Flush 10ml Syringe IV 04/12/19 09:55 10 ml ONCE ONE Administration ORDERS Category Date Time Status Urine Culture Stat Micro 04/12/19 08:50 Received Medical Decision Narrative: Patient remained hemodynamically stable we discussed the CT scan report below, he did have fever and chills 2 days a
--- NOTE | 2019-04-12 09:02 | ED_ITS ---
ED Disposition Clinical Impression: Ruptured ovarian cyst, Proteinuria, PID (acute pelvic inflammatory disease) Disposition: Home, Self-Care Condition on Discharge: Fair Additional Instructions: 1- start abx as we discussed. 2- need follow up with Dr Savage on Sunday. 3- Needs to see a engine inspector for hematuria. 4- indocin prn pain 5- to retur for fever, vomiting or any new sx. Prescriptions: Indomethacin [Indocin 25mg capsule] 25 mg PO Q8HP PRN #15 cap PRN Reason: Moderate To Severe Pain metroNIDAZOLE [Flagyl 500mg Tablet] 500 mg PO BID #28 tab Azithromycin [Zithromax 250mg tab] 250 mg PO DAILY #14 tab Referrals: Provider,Referral, MD [Primary Care Provider] - - Critical Care Critical Care Time: No Attestation: On 04/12/19, the high probability of a clinically significant, sudden or life threatening deterioration of the following system(s) required my full and direct attention, intervention and personal management. The time I documented below is in addition to time spent performing reported procedures but includes the following listed in this critical care notation. Medical Decision Making - Medical Records Medical records reviewed: Yes: I reviewed the patient's medical records. - Feliberto Inquiry Pt receiving controlled substance: No Feliberto was queried for this patient: No Vital Signs: 04/12/19 08:55 04/12/19 11:11 Temperature 98.4 F 98.7 F Temperature Source Oral Oral Pulse Rate [Left Radial] 86 61 Respiratory Rate 16 Blood Pressure [Right Arm] 121/69 105/65 L Blood Pressure Mean [Right Arm] 86 78 Blood Pressure Source [Right Arm] Automatic Cuff Automatic Cuff Blood Pressure Position [Right Arm] Sitting Sitting 02 Sat by Pulse Oximetry 98 99 Oxygen Delivery Method Room Air Room Air - Lab Data Lab Results 04/12/19 08:50: Urine Color Yellow, Urine Appearance Clear, Urine pH 6.0, Ur Specific [place] 1.020, Urine Protein 2+, Urine Glucose (UA) Negative, Urine Ketones Negative, Urine Blood Trace-i, Urine Nitrate Negative, Urine Bilirubin Negative, Urine Urobilinogen 0.2, Ur Leukocyte Esterase Negative, Urine RBC Occasional, Urine WBC 5-10, Ur Squamous Epith Cells 10-20, Urine Bacteria 2+ 04/12/19 08:50: Urine HCG, Qual Negative 04/12/19 09:05: WBC 12.4 H, RBC 4.45, Hgb 12.8, Hct 41.4, MCV 93.1, MCH 28.8, MCHC 31.0 L, RDW 12.4, Plt Count 267, MPV 8.9, Neut % (Auto) 71.1, Lymph % (Auto) 18.0, [place] % (Auto) 9.2, Eos % (Auto) 1.2, Baso % (Auto) 0.5, Neut # (Auto) 8.8 H, Lymph # (Auto) 2.2, [place] # (Auto) 1.2 H, Eos # (Auto) 0.2, Baso # (Auto) 0.1 04/12/19 09:05: Sodium 143, Potassium 3.9, Chloride 106, Carbon Dioxide 27, Anion Gap 13.9, BUN 9, Creatinine 0.81, Estimated Creat Clear 98, Estimated GFR 85, Est GFR ( Amer) 103, Glucose 89, Calcium 8.4 L, Total Bilirubin 0.7, AST 10 L, ALT 14, Alkaline Phosphatase 39 L, Total Protein 6.8, Albumin 3.8, Globulin 3.0, Albumin/Globulin Ratio 1.3, Lipase 141 Result diagrams: 04/12/19 09:05 04/12/19 09:05 Orders (Tests/Meds): ED MEDICATIONS Discontinued Medications Generic Name Dose Route Start Last Admin Trade Name Freq PRN Reason Stop Dose Admin Famotidine 20 mg 04/12/19 09:13 04/12/19 09:18 Pepcid 20mg/2ml Vial IV 04/12/19 09:14 20 mg
--- NOTE | 2019-04-12 09:03 | CT_ITS ---
CT abdomen pelvis wo/w con INDICATION: : R flank pain and RLQ pain x 10 days history of ovarian cyst ORDERING PHYSICIAN: Dionna Hannah MD PATIENT AGE: 24 years COMPARISON: CT abdomen and pelvis with contrast, from 08/09/[address] abdomen pelvis January 2013 . TECHNIQUE: Pre and post IV contrast imaging performed. 75 cc Optiray 350 IV contrast utilized for the postcontrast images. No oral contrast given Axial images obtained with sagittal and coronal reformats. All CT scans at the facility use one or more dose reduction, viz: automated exposure control, ma/kV adjustment per patient size (including targeted exams where dose is matched to indication, i.e. head), or iterative reconstruction technique. FINDINGS: Lung bases. The lung bases are clear with no active disease. Heart normal size. Abdomen. No remarkable findings at the upper abdomen Liver, spleen, pancreas, adrenals unremarkable. Gallbladder. No calcified stones. No biliary ductal dilatation TRACT. Kidneys normal size & normal enhancement. No obstruction obstruction. Left kidney.: Small subtle less than 3 mm calculus upper pole of the precontrast study. Coronal image 42/axial 28... Otherwise note slight Hyperdense renal pyramids towards lower pole left kidney but no discrete formed stone as of yet lower left kidney. Right kidney:: tiny 2.5 mm calculus developing lower pole calyx. Coronal slice 34 axial 47 Ureters unremarkable Ureters: unremarkable no dilatation. No calculi. PELVIS. Urinary bladder satisfactory. Anteverted uterus. Normal size. Mild/moderate Free fluid lower pelvis seen at and cul-de-sac extending mainly towards right adnexa, surrounding/and obscuring cystic right ovary-. Similar appearance was seen in 2016 Most likely reflects a ruptured cyst with mild/moderate surrounding the generous size cystic right ovary. There does appear to be enhancing thin rim of cyst measuring up to 2.1 cm at right ovary.... (Actually very similar appearance was seen in 2016 with enhancing rim thin cyst at that time as well....) Suspect underlying low-density enlarged right ovary measuring possibly up to 5 cm height-but again the margins of the right ovary obscured by the free fluid adjacent and surrounding the right ovary at... Consider Pelvic ultrasound to further evaluate.. Surprised do not see previous pelvic ultrasounds on this patient at our facility.-Presumed they have been performed elsewhere.. The left ovary contains numerous small follicles throughout and measures up to 4 cm AP and 3.8 cm x 1.8 cm transverse. Left ovary Better delineated. There is some fluid from cul-de-sac tracking towards the left ovary. GI tract. Generous stool is seen at the right colon and rectum.. Moderate stool throughout hepatic Flexure and transverse colon. Small bowel. Slight increased gas but no dilatation. Scattered small nonspecific air-fluid levels. Terminal ileum appears normal. Appendix is visualized in the most part of the normal. I would note that the tip of the appendix extends back towards right adnexa but favor the changes at the right adnexa related to ovary Osseous. No significant osseous findings. Osseous pelvis intact. IMPRESSION: ... 1. Mild/Moderate free fluid is seen at cul-de-sac and in extending mainly towards right adnexa, more so than left. I suspect findings reflect ruptured right ovarian cyst with free fluid surrounding & partially obscuring a generous size cystic right ovary. . Would note discrete enhancing thin rim just over 2 cm at right ovary. (Overall findings are very similar to a July 2016 CT abdomen pelvis) Left ovary normal in size & contains numerous follicles and is upper normal in size. Uterus appears moderate size with a moderate endometrial stripe
[2019-04-12 09:06] LABS: Microscopic, Urine URINE MICROSCOPIC (MICROSCOPIC)
[2019-04-12 09:08] LABS: Appearance,Urine CLEAR (Clear); Bilirubin,Urine Negative (Negative); Blood, Urine TRACE-I (Negative); Color,Urine YELLOW (Yellow); Glucose,Urine (UA) Negative (Negative); Ketones,Urine Negative (Negative); Leukocyte Esterase,Urine Negative (Negative); Nitrate,Urine Negative (Negative); Protein,Urine 2+ (Negative); Urobilinogen,Urine 0.2 EU/dl (0.2)
[2019-04-12 09:10] LABS: Urine Pregnancy, HCG Qual. Negative (Negative)
[2019-04-12 09:16] LABS: Basophils # 0.1 K/mm3 (0-0.2); Basophils % 0.5 % (0.1-2.0); Eosinophils # 0.2 K/mm3 (0.0-0.4); Eosinophils % 1.2 % (0.1-12.0); Hematocrit 41.4 % (37.0-47.0); Hemoglobin 12.8 g/dL (12.2-16.2); Lymphocytes # 2.2 K/mm3 (0.7-4.5); Mean Corpuscular Hemoglobin 28.8 pg (27.0-31.2); Mean Corpuscular Volume 93.1 fl (81-99); Mean Platelet Volume 8.9 fl (7.4-10.4); Monocytes # 1.2 K/mm3 (0.1-1.0); Monocytes % 9.2 % (1.7-9.3); Neutrophils # 8.8 K/mm3 (1.8-7.8); Neutrophils % 71.1 % (37.0-80.0); Platelet Count 267 K/mm3 (142-424); Red Blood Count 4.45 M/mm3 (4.20-5.40); Red Cell Distribution Width 12.4 % (11.5-17.5); White Blood Count 12.4 K/mm3 (4.8-10.8)
[2019-04-12 09:17] LABS: Bacteria,Urine 2+ /lpf; RBC,Urine Occasional #/hpf (0-3)
[2019-04-12 09:26] LABS: Alanine Aminotransferase 14 U/L (12-78); Albumin Level 3.8 gm/dL (3.4-5.0); Albumin/Globulin Ratio 1.3 (1.1-1.8); Alkaline Phosphatase 39 U/L (46-116); Anion Gap 13.9 mEq/L (5-15); Aspartate Amino Transferase 10 U/L (15-37); Bilirubin,Total 0.7 mg/dL (0.2-1.0); Blood Urea Nitrogen 9 mg/dL (7-18); Calcium 8.4 mg/dL (8.5-10.1); Carbon Dioxide 27 mmol/L (21.0-32.0); Chloride 106 mmol/L (98-107); Creatinine Clearance Estimated 98 mL/min (50-200); Creatinine,Serum 0.81 mg/dL (0.55-1.02); Estimated Glomerular Filt Rate 85 ml/min (>60); GFR (African American) 103 ML/MIN (>60); Glucose 89 mg/dL (74-106); Lipase 141 u/L (73-393); Potassium 3.9 mmoL/L (3.5-5.1); Sodium 143 mmol/L (136-145); Total Protein,Serum 6.8 gm/dL (6.4-8.2)
--- NOTE | 2019-04-12 10:01 | PC.NURSE ---
pt return from ct states pain improved.
[2019-04-12 11:11] VITALS: BP 105/65; PULSE 61; TEMP 37.1; O2SAT 99
[2019-04-12 11:30] VITALS: BP 105/64; BP 106/65; PULSE 61; PULSE 78; RESP 16; RESP 18; TEMP 36.9; TEMP 37.1; O2SAT 98; O2SAT 99
== END 2019-04-12 11:33 | disposition home or self-care (01) ==
PROVIDERS: Emergency Provider Emergency Medicine
DX: N83.209 Unspecified ovarian cyst, unspecified side (principal); R80.9 Proteinuria, unspecified; F17.210 Nicotine dependence, cigarettes, uncomplicated
CPT/HCPCS: 74178; 80053; 81001; 81025; 83690; 85025; 87086; 96374; 96375; 99283; Q9967

== ENCOUNTER 2020-08-31 10:32 | Emergency (ER) | payer BC, SELFPAY ==
[2020-08-31 11:35] VITALS: BP 137/68; PULSE 98; RESP 19; TEMP 36.9; O2SAT 99; BMI 27.1
[2020-08-31 11:41] VITALS: BP 137/68; PULSE 98; RESP 19; TEMP 36.9; O2SAT 99
--- NOTE | 2020-08-31 11:57 | HMH.EDUTC ---
[facility] [place] Clinical Impression: Otitis media Qualifiers: Otitis media type: unspecified Laterality: right Qualified Code(s): H66.91 - Otitis media, unspecified, right ear Disposition: Home, Self-Care Condition on Discharge: Good Instructions: Middle Ear Infection, Middle Ear Infections (Alternative Therapy), Amoxicillin, Preventing the Spread of Coronavirus Discharge Instructions Additional Instructions: *Monitor Temp, Over the counter Motrin or Tylenol as directed/as needed Tylenol every 4 hours and Motrin every 6 hours (as long as your family doctor has told you that you can take it) for fever or pain. and straight to ER if unable to lower temp less than 101.0 after medication given *Warm salt water gargles may help to soothe the throat *Throat Lozenges *Warm fluids like tea with honey may help to soothe the throat *Sleep elevated *Humidifier/Vaporizer *Flonase 2 sprays in each nostril daily but be aware that it may take 2-3 days before you notice improvement Your throat swab was sent for culture. Those results are typically sent to your primary care. Be sure to follow up in 2-3 days with your family doctor/primary care physician if no improvement so they can review those result and treat if necessary. If you don?t have a primary care doctor, I recommend you get one but in the mean time, you will have to return to a walk in clinic Follow up IMMEDIATELY for new or worsening symptoms or no Noticeable improvement over the next 48-72 hours. 911 for difficulty breathing or swallowing You was tested for today for COVID19 your test result should be back in the next 24-48 hours, you may call to the [facility] tomorrow to see if your test results are back and the result [phone] You was given a handout with instructions for Self Quarantine and Self isolation for while you wait on test results and what to do if they are positive If you are positive the Health Dept will be contacting you also Prescriptions: Amoxicillin [Amoxicillin 500mg Cap] 500 mg PO TID #30 cap Transmission Status: Pending to [id number] Fluticasone Propionate [Flonase 50mcg nasal spray 16gm] 1 spr NS DAILY #1 bottle Transmission Status: Pending to [id number] Referrals: PCP,No [Primary Care Provider] - As needed Forms: Work/School Release Time of Disposition: 12:08 Medical Decision Making - Feliberto Inquiry Pt receiving controlled substance: No Feliberto was queried for this patient: No Vital Signs: 08/31/20 11:35 08/31/20 11:41 Temperature 98.4 F 98.4 F Temperature Source Oral Pulse Rate 98 H Pulse Rate [Left] 98 H Respiratory Rate 19 19 Blood Pressure 137/68 Blood Pressure [Right Arm] 137/68 Blood Pressure Mean [Right Arm] 91 Blood Pressure Source [Right Arm] Automatic Cuff Blood Pressure Position [Right Arm] Sitting 02 Sat by Pulse Oximetry 99 Oxygen Delivery Method Room Air - Lab Data Lab results reviewed: Yes: I reviewed the patient's lab results. Orders (Tests/Meds): ORDERS Category Date Time Status Covid-19 Nasal PCR ([facility]) Routine Lab 08/31/20 11:29 Ordered [facility] UTC HPI - General Stated complaint: body aches, fatigue,sneezing Time Seen by Provider: 08/31/20 11:57 Mode of Arrival: Ambulatory Source of Information: Patient Limitations: No Limitations Description of Symptoms (Recalled from Triage Doc. by RN): body aches, runny nose, cough, sore throat x 3 day HEENT Symptoms (Recalled from RN notes): Yes Resp Symptoms (Recalled from RN notes): Yes Skin Symptoms (Recalled from RN notes): No MS Symptoms (Recalled from RN notes): No Functional Status (Recalled from RN notes): stable - History of Present Illness Provider Complaint: Patient states that he has not been feeling well for about 3 days States that he has been having sore throat, body aches, chills and runny nose States that she has also had bilateral ear pain that has continued to get worse over the last week today she felt like th
[2020-08-31 20:21] LABS: UTC Influenza A Antigen Negative (Negative)
[2020-08-31 20:21] LABS: UTC Strep Screen (Rapid) Negative (Negative)
[2020-08-31 20:22] LABS: UTC Influenza B Antigen Negative (Negative)
== END 2020-08-31 12:17 | disposition home or self-care (01) ==
PROVIDERS: Emergency Provider Nurse Practitioner
DX: Z20.828 Contact with and (suspected) exposure to other viral communicable diseases (principal); H66.91 Otitis media, unspecified, right ear
CPT/HCPCS: 87804; 87880; 99202; U0003

== ENCOUNTER → 2021-03-24 13:55 | Outpatient (CLI) | payer BC, SELFPAY ==
--- NOTE | 2021-03-24 13:59 | XR_ITS ---
PROCEDURE: XR FOOT WT BEARING RT 3V CLINICAL INDICATION: pain COMPARISON: No exams were available for comparison FINDINGS: No fracture or dislocation. No lytic or blastic change. There is normal mineralization. The joint spaces are well-preserved. No significant degenerative/arthritic changes. No erosive changes evident. Other findings:None. IMPRESSION: No acute findings. Dictated by: Lex Jackson MD 03/24/2021 14:44 Lex Jackson MD in [place] 03/24/2021 14:44
--- NOTE | 2021-03-24 13:59 | XR_ITS ---
PROCEDURE: XR FOOT WT BEARING LT 3V CLINICAL INDICATION: pain COMPARISON: No exams were available for comparison FINDINGS: No fracture or dislocation. No lytic or blastic change. There is normal mineralization. The joint spaces are well-preserved. No significant degenerative/arthritic changes. No erosive changes evident. Other findings:None. IMPRESSION: No acute findings. Dictated by: Lex Jackson MD 03/24/2021 14:50 Lex Jackson MD in [place] 03/24/2021 14:50
== END ==
PROVIDERS: PCP Family Medicine; Visit Provider Nurse Practitioner
DX: M72.2 Plantar fascial fibromatosis (principal)
CPT/HCPCS: 73630

== ENCOUNTER 2021-09-05 19:03 | Emergency (ER) | payer BC, SELFPAY ==
[2021-09-05 20:10] VITALS: BP 136/80; PULSE 96; RESP 18; TEMP 36.9; O2SAT 100; BMI 25.8
--- NOTE | 2021-09-05 20:36 | HMH.EDUTC ---
[facility] [place] Clinical Impression: Abscess Cellulitis Qualifiers: Site of cellulitis: extremity Site of cellulitis of extremity: lower extremity Laterality: left Qualified Code(s): L03.116 - Cellulitis of left lower limb Disposition: Home, Self-Care Condition on Discharge: Good Instructions: Cellulitis, DI for Skin Abscess Additional Instructions: Apply warm compress of water and epson salt to the area *Start antibiotic(s) immediately and be sure to take as ordered for the FULL length of time although you may be feeling better or start to see improvement in the next 24-48 hours *Monitor closely. Outlined redness so that you can monitor easier. Follow up immediately for new or worsening symptoms including but not limited to redness, swelling, streaking from site fever or chills. *Warm compress 15 minutes 3-4 times day *Never squeeze or pop these on your own. Seek immediate medical attention next time this occurs *Monitor Temp. Tylenol every 4 hours as needed and ibuprofen every 6 hours as needed (as long as your primary care doctor has told you that it is ok to take both. For fever, aches, pain. ER if no less that 101 despite Tylenol and ibuprofen Follow up with your family doctor/primary care physician in the next 48-72 hours if no improvement Follow up with General Surgery if no improvement or any worsening for further evaluation if needed Return if needed Straight to ER if any life threatening symptoms, streaks or fever Prescriptions: Sulfamethoxazole/Trimethoprim [Bactrim DS tablet] 1 each PO BID 10 Days #20 tab Transmission Status: Pending to [facility] #[id number] cephALEXin [cephALEXin 500mg capsule*] 500 mg PO Q6H 7 Days #28 cap Transmission Status: Pending to [facility] #[id number] Mupirocin Calcium [Mupirocin 2% Cream 15gm] 1 applicatio TP TID 10 Days #15 gm Transmission Status: Pending to [facility] #[id number] Referrals: Juan Upton MD [Primary Care Provider] - As needed Gurjit Oshea MD [Staff Physician] - Carlton Anderson MD [Staff Physician] - Forms: Work/School Release Time of Disposition: 20:59 Medical Decision Making - Feliberto Inquiry Pt receiving controlled substance: No Feliberto was queried for this patient: No Vital Signs: 09/05/21 20:10 09/05/21 20:53 Temperature 98.5 F 98.5 F Temperature Source Oral Pulse Rate 96 H Pulse Rate [Left] 96 H Respiratory Rate 18 18 Blood Pressure 136/80 Blood Pressure [Right Arm] 136/80 Blood Pressure Mean [Right Arm] 98 02 Sat by Pulse Oximetry 100 Orders (Tests/Meds): ED MEDICATIONS Discontinued Medications Generic Name Dose Route Start Last Admin Trade Name Micheline PRN Reason Stop Dose Admin Cephalexin HCl 500 mg 09/05/21 20:55 09/05/21 20:57 Cephalexin 500mg Capsule PO 09/05/21 20:56 500 mg ONCE ONE Administration Trimethoprim/Sulfamethoxazole 1 each 09/05/21 20:55 09/05/21 20:56 Sulfa/Trimethoprim 1 Tablet PO 09/05/21 20:56 1 each ONCE ONE Administration ORDERS Category Date Time Status Wound Culture and Gram Stain Stat Micro 09/05/21 20:54 Ordered Medical Decision Narrative: Culture obtained and sent to lab [facility] [place] - General Stated complaint: infection on L leg Time Seen by Provider: 09/05/21 20:36 Mode of Arrival: Ambulatory Source of Information: Patient Limitations: No Limitations Description of Symptoms (Recalled from Triage Doc. by RN): pt states she has an abcess on her inner L thigh that is purple and swollen. HEENT Symptoms (Recalled from RN notes): No Resp Symptoms (Recalled from RN notes): No Skin Symptoms (Recalled from RN notes): Yes (abcess on inner L thigh) MS Symptoms (Recalled from RN notes): No Functional Status (Recalled from RN notes): na - History of Present Illness Provider Complaint: Patient states that she gets alot of ingrown hairs and she noticed she had a hard area on her left inner thigh area she has not been able to get anything out of it St
[2021-09-05 20:53] VITALS: BP 136/80; PULSE 96; RESP 18; TEMP 36.9
== END 2021-09-05 21:15 | disposition home or self-care (01) ==
PROVIDERS: Emergency Provider Nurse Practitioner; PCP Family Medicine
DX: L03.116 Cellulitis of left lower limb (principal)
CPT/HCPCS: 10060; 87070; 87077; 87186; 87205; 99202; G0463

== ENCOUNTER 2021-10-02 09:05 | Emergency (ER) | payer BC, SELFPAY ==
[2021-10-02 09:15] VITALS: BP 120/69; PULSE 113; RESP 21; TEMP 36.7; O2SAT 98; BMI 27.6
[2021-10-02 09:36] LABS: UTC Influenza A Antigen Negative (Negative); UTC Strep Screen (Rapid) Negative (Negative)
[2021-10-02 09:37] LABS: UTC Influenza B Antigen Negative (Negative)
--- NOTE | 2021-10-02 09:45 | HMH.EDUTC ---
[facility] [place] Dis[place] Clinical Impression: Viral syndrome Disposition: Home, Self-Care Condition on Discharge: Good Instructions: DI for Viral Syndrome, DI for COVID-19 (Suspected or Confirmed ), Preventing the Spread of Coronavirus Discharge Instructions Additional Instructions: *Monitor Temp, Over the counter Motrin or Tylenol as directed/as needed Tylenol every 4 hours and Motrin every 6 hours (as long as your family doctor has told you that you can take it) for fever or pain. and straight to ER if unable to lower temp less than 101.0 after medication given *Warm salt water gargles may help to soothe the throat *Throat Lozenges *Warm fluids like tea with honey may help to soothe the throat *Sleep elevated *Humidifier/Vaporizer *Bromfed may cause drowsiness. Know how it effects you (your child) before driving, caring for small child, or sending your child to school. Not other antihistamines/allergy medications while taking bromfed Your throat swab was sent for culture. Those results are typically sent to your primary care. Be sure to follow up in 2-3 days with your family doctor/primary care physician if no improvement so they can review those result and treat if necessary. If you don?t have a primary care doctor, I recommend you get one but in the mean time, you will have to return to a walk in clinic Follow up IMMEDIATELY for new or worsening symptoms or no Noticeable improvement over the next 48-72 hours. 911 for difficulty breathing or swallowing You were tested for today for COVID19 your test result should be back in the next 24-48 hours, you may check your results on [facility] my health portal if you have trouble logging on you may call You was given a handout with instructions for Self Quarantine and Self isolation for while you wait on test results and what to do if they are positive If you are positive the Health Dept will be contacting you also Make sure to take your Vitamins Vit. C Vit D and Zinc if you can take them Prescriptions: Brompheniramine/Pseudoephed/Dm [Bromfed Dm Cough Syrup] 5 - 10 ml PO Q46H PRN #200 ml PRN Reason: Cough Transmission Status: Pending to [facility] #[id number] Ondansetron [Zofran 4mg ODT] 4 mg PO TIDP PRN #12 tab PRN Reason: Nausea Transmission Status: Pending to [facility] #[id number] Referrals: Juan Upton MD [Primary Care Provider] - As needed Forms: Work/School Release Medical Decision Making - Feliberto Inquiry Pt receiving controlled substance: No Feliberto was queried for this patient: No Vital Signs: 10/02/21 09:15 Temperature 98.0 F Temperature Source Oral Pulse Rate [Right Brachial] 113 H Respiratory Rate 21 Blood Pressure [Right Arm] 120/69 Blood Pressure Mean [Right Arm] 86 Blood Pressure Source [Right Arm] Automatic Cuff Blood Pressure Position [Right Arm] Sitting 02 Sat by Pulse Oximetry 98 Oxygen Delivery Method Room Air - Lab Data Lab results reviewed: Yes: I reviewed the patient's lab results. Lab Results 10/02/21 09:35: Influenza Type A Ag Negative, Influenza Type B Ag Negative 10/02/21 09:35: Strep Scn Rapid Clinic Negative Orders (Tests/Meds): ORDERS Category Date Time Status Covid-19 Nasal PCR ([facility]) Routine Lab 10/02/21 09:35 Ordered Strep Screen Confirmation Stat Micro 10/02/21 09:35 Received [facility] [place] HPI - General Stated complaint: covid symptoms Time Seen by Provider: 10/02/21 09:46 Mode of Arrival: Ambulatory Source of Information: Patient Limitations: No Limitations Description of Symptoms (Recalled from Triage Doc. by RN): PATIENT C/O SORE THROAT, BODY ACHES, VOMITING, AND HEADACHE X 1 WEEK HEENT Symptoms (Recalled from RN notes): Yes Resp Symptoms (Recalled from RN notes): No Skin Symptoms (Recalled from RN notes): No MS Symptoms (Recalled from RN notes): No Functional Status (Recalled from RN notes): WNL - History of Present Illness Provider Complaint: Patient states that she has been having flu like
[2021-10-02 09:57] VITALS: BP 120/69; PULSE 113; RESP 21; TEMP 36.7; O2SAT 98
== END 2021-10-02 10:00 | disposition home or self-care (01) ==
PROVIDERS: Emergency Provider Nurse Practitioner; PCP Family Medicine
DX: U07.1 COVID-19 (principal); J02.9 Acute pharyngitis, unspecified
CPT/HCPCS: 87804; 87880; 99203; C9803; G0463; U0003; U0005

== ENCOUNTER → 2022-05-17 20:14 | Outpatient (CLI) | payer BC, SELFPAY ==
[2022-05-17 21:04] LABS: Adenovirus F 40/41, stool Not Detected (NotDetected); Astrovirus Not Detected (NotDetected); Campylobacter Not Detected (NotDetected); Clostridium Difficile A/B, PCR Not Detected (NotDetected); Cryptosporidium Not Detected (NotDetected); Cyclospora Cayetanesis Not Detected (NotDetected); Entamoeba histolytica Not Detected (NotDetected); Enteroaggregative E coli Not Detected (NotDetected); Enteropathogenic E coli Not Detected (NotDetected); Enterotoxigenic E coli Not Detected (NotDetected); Giardia lamblia Not Detected (NotDetected); Norovirus Not Detected (NotDetected); Plesimonas Shigalloides, PCR Not Detected (NotDetected); Rotavirus A Not Detected (NotDetected); Sapovirus Not Detected (NotDetected); Shiga-like toxin E coli Not Detected (NotDetected); Shigella Enterovasive E coli Not Detected (NotDetected); Vibrio Cholerae Not Detected (NotDetected); Vibrio, PCR Not Detected (NotDetected); Yersinia Entercolitica, PCR Not Detected (NotDetected)
[2022-05-18 08:20] LABS: Salmonella, PCR Detected (NotDetected)
== END ==
PROVIDERS: PCP Family Medicine; Visit Provider Physician Assistant
DX: R19.7 Diarrhea, unspecified (principal); A02.8 Other specified salmonella infections
CPT/HCPCS: 87507

== ENCOUNTER 2022-07-30 09:13 | Emergency (ER) | payer BC, SELFPAY ==
--- NOTE | 2022-07-30 09:16 | EXP.UTC ---
Discharge Plan Disposition Patient Disposition: Home, Self-Care Condition: Good Prescriptions Prescriptions: New azithromycin [Zithromax] 250 mg tablet 250 mg PO UD DOSE PK Qty: 6 0RF Rx Instructions: Take two (2) tablets today, then one (1) tablet days #2 thru #5 benzonatate [benzonatate] 100 mg capsule 100 mg PO TIDP PRN (Reason: Cough) Qty: 30 0RF methylprednisolone 4 mg Tablets,Dose Pack 4 mg PO DIRECTED Qty: 21 0RF hbxdfekzjwxjwmr-ltjauujfn-OH [Bromfed DM] 2-30-10 mg/5 mL Syrup 5 ml PO Q6H PRN (Reason: Cough) Qty: 240 0RF No Action methylprednisolone 4 mg tablets,dose pack See Rx Instructions PO PER PKG DIR Qty: 21 0RF Rx Instructions: PO PER PKG DIR meloxicam 7.5 mg tablet 7.5 mg PO DAILY 30 Days Qty: 30 2RF sulfamethoxazole-trimethoprim 1 EACH tablet 1 each PO BID 10 Days Qty: 20 0RF cephalexin 500 MG capsule 500 mg PO Q6H 7 Days Qty: 28 0RF mupirocin calcium 15 GM cream 1 applicatio TP TID 10 Days Qty: 15 0RF Rx Instructions: apply to area as directed rnozljuyijxmcvv-tvvzhllsn-SL 118 ML syrup 5 - 10 ml PO Q46H PRN (Reason: Cough) Qty: 200 0RF ondansetron 4 MG tablet,disintegrating 4 mg PO TIDP PRN (Reason: Nausea) Qty: 12 0RF Referrals Follow up/Referrals: Juan Upton MD [Primary Care Provider] - See instructions Activity Restrictions/Add. Instructions Additional Instructions/Restrictions: Drink plenty of fluids. Take tylenol or ibuprofen for pain or fever. Take the medications as directed. Follow up with your regular doctor. GO TO THE ER FOR ANY WORSENING SYMPTOMS Clinical Impressions Clinical Impression: Upper respiratory infection, Sinusitis Instructions Patient Instructions: Sinusitis, DI for Sinusitis Discharge ED Provider: Ga Nguyen [facility] [place] HPI General Stated complaint: congestion, sore throat Time Seen by Provider: 07/30/22 09:17 History of Present Illness Provider Complaint: She c/o sinus congestion for the past 2 days. Related Data Previous Rx's Medication Instructions Recorded meloxicam 7.5 mg tablet 7.5 mg PO DAILY pain 30 days #30 03/24/21 tabs methylprednisolone 4 mg tablets in See Rx Instructions PO PER PKG DIR 03/24/21 a dose pack #21 tabs cephalexin 500 mg capsule 500 mg PO Q6H 7 days #28 caps 09/05/21 mupirocin calcium 2 % topical cream 1 applicatio TP TID 10 days ##15 09/05/21 sulfamethoxazole 800 1 each PO BID 10 days #20 tabs 09/05/21 mg-trimethoprim 160 mg tablet yddsyypqbcjqreu-vyecuidjjjosvfl-MV 5 - 10 ml PO Q46H PRN Cough #200 mL 10/02/21 2 mg-30 mg-10 mg/5 mL oral syrup ondansetron 4 mg disintegrating 4 mg PO TIDP PRN Nausea #12 tabs 10/02/21 tablet azithromycin 250 mg tablet 250 mg PO UD DOSE PK #6 tabs 07/30/22 (Zithromax) benzonatate 100 mg capsule 100 mg PO TIDP PRN Cough #30 caps 07/30/22 ppswrwstfwhqpts-vpqswrfpndbbxgt-TY 5 ml PO Q6H PRN Cough #240 mL 07/30/22 2 mg-30 mg-10 mg/5 mL oral syrup (Bromfed DM) methylprednisolone 4 mg tablets in 4 mg PO DIRECTED #21 tabs 07/30/22 a dose pack Allergies Allergy/AdvReac Type Severity Reaction Status Date / Time No Known Allergies Allergy Verified 07/30/22 09:26 [facility] Social History Smoking Status: Never smoker second hand exposure: No alcohol intake: never substance use type: denies use and marijuana current occupational status: other Travel in the last 8 weeks: None household members: family housing: house number of children: 0 current occupational exposures/hazards: No caffeine: Yes ROS Obtained: Yes All systems reviewed & no additional complaints except as documented Constitutional Constitutional: Reports chills and Reports fever(s) Eyes Eyes: Denies eye discharge ENT Ears, Nose, Mouth, and Throat: Reports as per HPI Cardiovascular Cardiovascular: Denies chest pain Respiratory Respirato
[2022-07-30 09:22] VITALS: BP 119/74; PULSE 69; RESP 18; TEMP 36.5; O2SAT 98; BMI 27.4
[2022-07-30 09:34] LABS: UTC Strep Screen (Rapid) Negative (Negative)
[2022-07-30 09:47] VITALS: BP 119/74; PULSE 69; RESP 18; TEMP 36.5
== END 2022-07-30 09:47 | disposition home or self-care (01) ==
PROVIDERS: Emergency Provider Nurse Practitioner Family; PCP Family Medicine
DX: J06.9 Acute upper respiratory infection, unspecified (principal); J32.9 Chronic sinusitis, unspecified
CPT/HCPCS: 87880; 99212; G0463

== ENCOUNTER 2023-05-30 20:33 | Emergency (ER) | payer BC, SELFPAY ==
[2023-05-30 20:34] VITALS: BP 142/80; PULSE 84; RESP 16; TEMP 36.9; O2SAT 100; BMI 27.4
--- NOTE | 2023-05-30 20:34 | PC.NURSE ---
Visual acuity; right eye: 20/30. left eye: 20/20
--- NOTE | 2023-05-30 20:48 | PC.NURSE ---
verified vancomycin dose with Merlin Pharmacist
--- NOTE | 2023-05-30 20:50 | CT_ITS ---
PROCEDURE INFORMATION: Exam: CT Maxillofacial With Contrast Exam date and time: 05/30/2023 9:07 PM Age: 28 years old Clinical indication: Visual changes or disturbances; Other: Blurred vision; Patient HX: Redness, pressure to right eye; Additional info: R periorbital vs orbital cellulitis TECHNIQUE: Imaging protocol: Computed tomography of the face with contrast. Radiation optimization: All CT scans at this facility use at least one of these dose optimization techniques: automated exposure control; mA and/or kV adjustment per patient size (includes targeted exams where dose is matched to clinical indication); or iterative reconstruction. Contrast material: ISOVUE; Contrast volume: 75 ml; Contrast route: IV; REPORTING DATA: Count of CT and Cardiac NM exams in prior 12 months: This patient has received 0 known CTs and 0 known cardiac nuclear medicine studies in the 12 months prior to the current study. COMPARISON: SINUSWO CT sinus wo con 12/04/2017 11:20 PM FINDINGS: Orbital cavities: See Soft tissues finding. Bones/joints: No acute fracture. Paranasal sinuses: Normal. No air-fluid levels. Soft tissues: Mild periorbital soft tissue edema is noted along the anterior inferior aspect of the right orbit anterior to the inferior orbital rim and the orbital septum with no evidence of extension posterior to the orbital septum to suggest orbital cellulitis. Globes are symmetric and intact. Brain: Incidental enhancing vascular lesion in the posterior right cerebellum. IMPRESSION: 1. Mild right orbital periorbital cellulitis. 2. 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
--- NOTE | 2023-05-30 21:01 | HMH.EDGENADL ---
Discharge Plan Disposition Patient Disposition: Home, Self-Care Condition: Fair Prescriptions Prescriptions: New sulfamethoxazole-trimethoprim [Bactrim DS] 800-160 mg tablet 1 tab PO BID 10 Days Qty: 20 0RF No Action htzxlbzp-hygmivuyis-pomraxttr 3.5-400-10,000 qi-cuus-ptdq/g ointment 1 applic ophthalmic (eye) QID 10 Days Qty: 3.5 0RF ofloxacin 0.3 % drops See Rx Instructions ophthalmic (eye) .COMPLEX Qty: 10 0RF Rx Instructions: put 1-2 drps into affected eye(s) every 2-4 h x 2 days, then 1-2 drps 4 times/day days 3-7 ophthalmic (eye) Referrals Follow up/Referrals: Juan Upton MD [Primary Care Provider] - See instructions Activity Restrictions/Add. Instructions Additional Instructions/Restrictions: At this time it was felt you are safe to be discharged home. If new or worsening symptoms please not hesitate to return to the emergency department. Please take antibiotics as prescribed. Please call f/u with ophthalmology [facility] [phone] tomorrow morning if you are not contacted by late morning to schedule follow-up. Clinical Impressions Clinical Impression: Cellulitis, periorbital Discharge ED Provider: Damon Stoll General Adult HPI General Chief complaint: Eye Problems Stated complaint: RT eye swelling Time Seen by Provider: 05/30/23 20:35 Mode of Arrival: Ambulatory Source of Information: Patient Limitations: No Limitations Description of Symptoms (Recalled from ER Triage Doc. by RN): Presents to ED with c/o swelling/pressure/redness in the right eye that started Sunday. Patient reports going to the [facility] this morning and since has had increased blurred vision. Rx Ofloxacin eye drops from Clinic with no relief; clinic reported if eye pain persisted to come to ED. Denies injury to eye and fever. History of Present Illness HPI narrative: Patient is a 28-year-old female with no pertinent past medical history presents emergency department for evaluation of right facial swelling. History is obtained by patient at bedside. She presented to clinic today for eye swelling which she was prescribed eyedrops and subsequently discharged home. Patient is have progressive swelling over her face, new onset visual blurriness, worsening of pain around her eye. When asked if it is painful when she moves her eye she states yes however is difficult for her to characterize if it is in the front or behind her eye. Patient denies vomiting, acute extremity weakness, other acute complaints at this time. Per chart review patient was also seen with right flank pain today and urinalysis was negative. Related Data Previous Rx's Medication Instructions Recorded yholheqe-bzlyoanqkb-gsvtqokm 3.5 1 applic ophthalmic (eye) QID 10 05/30/23 mg-400 unit-10,000 unit/gram eye days #3.5 grams oint ofloxacin 0.3 % eye drops See Rx Instructions ophthalmic 05/30/23 (eye) .COMPLEX #10 mL sulfamethoxazole 800 1 tab PO BID 10 days #20 tabs 05/30/23 mg-trimethoprim 160 mg tablet (Bactrim DS) Allergies Allergy/AdvReac Type Severity Reaction Status Date / Time No Known Allergies Allergy Verified 05/30/23 11:28 [facility] Disclaimer: The information contained in this section may have been updated after the patient was seen, as this information can be updated by other users. Social History Smoking Status: Never smoker second hand exposure: No alcohol intake: never substance use type: denies use and marijuana current occupational status: other Travel in the last 8 weeks: None household members: family housing: house number of children: 0 current occupational exposures/hazards: No caffeine: Yes ROS Obtained: Yes Systems reviewed as appropriate & no additional complaints except as documented Physical Exam General General appearance: alert and in no apparent distress Head Head exam: atraumatic and other (Dif
[2023-05-30 21:11] LABS: Basophils # 0.1 K/mm3 (0-0.2); Basophils % 0.7 % (0.1-2.0); Eosinophils # 0.1 K/mm3 (0.0-0.4); Hematocrit 44.9 % (37.0-47.0); Hemoglobin 14.1 g/dL (12.2-16.2); Lymphocytes # 3.5 K/mm3 (0.7-4.5); Lymphocytes % 28.8 % (10-50); Mean Corpuscular HGB Conc 31.5 g/dL (31.8-35.4); Mean Corpuscular Hemoglobin 29.3 pg (27.0-31.2); Mean Corpuscular Volume 93.1 fl (81-99); Mean Platelet Volume 9.3 fl (7.4-10.4); Monocytes # 0.8 K/mm3 (0.1-1.0); Monocytes % 6.3 % (1.7-9.3); Neutrophils # 7.6 K/mm3 (1.8-7.8); Neutrophils % 63.2 % (37.0-80.0); Platelet Count 316 K/mm3 (142-424); Red Blood Count 4.82 M/mm3 (4.20-5.40); Red Cell Distribution Width 12.1 % (11.5-17.5)
[2023-05-30 21:14] LABS: Alanine Aminotransferase 16 U/L (12-78); Albumin Level 4.9 g/dl (3.5-5.0); Albumin/Globulin Ratio 1.4 (1.1-1.8); Alkaline Phosphatase 56 U/L (38-126); Anion Gap 13.7 mEq/L (5-15); Aspartate Amino Transferase 26 U/L (14-36); Bilirubin,Total 0.2 mg/dl (0.2-1.3); Blood Urea Nitrogen 12 mg/dl (7-17); Calcium 9.4 mg/dl (8.4-10.2); Carbon Dioxide 28 mmol/L (22.0-30.0); Chloride 103 mmol/L (98-107); Creatinine Clearance Estimated 143 mL/min (50-200); Estimated Glomerular Filt Rate 98 ml/min (>60); GFR (African American) 119 ML/MIN (>60); Globulin 3.5 g/dL (1.3-3.2); Glucose 104 mg/dl (74-100); Potassium 3.7 mmoL/L (3.5-5.1); Sodium 141 mmol/L (136-145); Total Protein,Serum 8.4 g/dl (6.3-8.2)
[2023-05-30 21:19] LABS: C-Reactive Protein 2.5 mg/L (0-4)
[2023-05-30 21:51] VITALS: BP 131/82; PULSE 85; RESP 16; O2SAT 100
--- NOTE | 2023-05-30 21:54 | PC.NURSE ---
[facility] called transfer center about getting a bed for the pt. On hold for Dr. Humphries
--- NOTE | 2023-05-30 21:56 | PC.NURSE ---
Rounded on patient; nothing needed at this time. Call [facility] within reach
[2023-05-30 22:02] LABS: Erythrocyte Sedimentation Rate 8 mm/hr (0-20)
--- NOTE | 2023-05-30 22:12 | PC.NURSE ---
[facility] called back. Dr Drake talking to Dr. Stoll. CR
--- NOTE | 2023-05-30 22:44 | PC.NURSE ---
Rounded on patient; patient reports she is in a lot of pain. MD notified; V/O for 30mg Toradol IVP and Ofirmev 1000mg IV.
[2023-05-30 22:52] VITALS: BP 111/79; PULSE 61; O2SAT 98
[2023-05-30 23:00] VITALS: BP 106/70; PULSE 70; RESP 16; O2SAT 99
[2023-05-30 23:30] VITALS: BP 107/65; PULSE 68; RESP 16; O2SAT 98
--- NOTE | 2023-05-30 23:30 | PC.NURSE ---
Patient resting at this time. Call [facility] within reach
--- NOTE | 2023-05-30 23:58 | PC.NURSE ---
Rounded on patient; patient ambulated to bathroom
[2023-05-31 00:03] VITALS: BP 104/75; PULSE 64; RESP 16; TEMP 36.9; O2SAT 98
== END 2023-05-31 00:29 | disposition home or self-care (01) ==
PROVIDERS: Emergency Provider Emergency Medicine; PCP Family Medicine
DX: L03.213 Periorbital cellulitis (principal)
CPT/HCPCS: 70487; 80053; 85025; 85651; 86140; 87040; 96365; 96366; 96368; 96375; 99285; J0131; J0696; Q9967

== ENCOUNTER → 2023-05-30 23:25 | Outpatient (CLI) | payer BC, SELFPAY | PROVIDERS: PCP Family Medicine; Visit Provider Nurse Practitioner Family | DX: R10.9 Unspecified abdominal pain (principal) | CPT/HCPCS: 87086 ==

== ENCOUNTER 2023-12-07 14:55 | Outpatient (CLI) | payer OTHER, SELFPAY ==
--- NOTE | 2023-12-07 15:00 | XR_ITS ---
FINAL REPORT CLINICAL HISTORY: cervicalgia, PAIN IN BACK OF NECK, LOWER C SPINE COMPARISON: None FINDINGS: AP, lateral and odontoid views of the cervical spine were obtained. There is no prior exam for comparison. There is no acute fracture. There is mild kyphosis centered at the C5 level. Vertebral body height is preserved. The precervical soft tissues are normal. IMPRESSION: No acute osseous abnormality of the cervical spine. Mild kyphosis centered at the C5 level. Reviewed, Interpreted and Dictated by Carlton Newman III, MD Transcribed by Marleny Asher Authenticated and [facility]
== END 2023-12-07 23:59 ==
LOC: RAD 14:56
PROVIDERS: PCP Nurse Practitioner Family; Visit Provider Nurse Practitioner Family
DX: M43.6 Torticollis (principal); M54.2 Cervicalgia
CPT/HCPCS: 72040

== ENCOUNTER 2024-09-09 13:26 | Outpatient (CLI) | payer BC, SELFPAY ==
[2024-09-09 16:55] LABS: Basophils # 0.1 K/mm3 (0-0.2); Basophils % 0.7 % (0.1-2.0); Eosinophils # 0.2 K/mm3 (0.0-0.4); Eosinophils % 2.1 % (0.1-12.0); Hematocrit 40.7 % (37.0-47.0); Hemoglobin 13.9 g/dL (12.2-16.2); Lymphocytes # 1.9 K/mm3 (0.7-4.5); Lymphocytes % 27.2 % (10-50); Mean Corpuscular HGB Conc 34.1 g/dL (31.8-35.4); Mean Corpuscular Hemoglobin 31.6 pg (27.0-31.2); Mean Corpuscular Volume 92.8 fl (81-99); Mean Platelet Volume 10.2 fl (7.4-10.4); Monocytes # 0.8 K/mm3 (0.1-1.0); Neutrophils # 4.2 K/mm3 (1.8-7.8); Neutrophils % 58.9 % (37.0-80.0); Platelet Count 300 K/mm3 (142-424); Red Blood Count 4.38 M/mm3 (4.20-5.40); Red Cell Distribution Width 12.5 % (11.5-17.5); White Blood Count 7.1 K/mm3 (4.8-10.8)
[2024-09-09 17:32] LABS: Alanine Aminotransferase 12 U/L (12-78); Albumin Level 4.3 g/dl (3.5-5.0); Alkaline Phosphatase 41 U/L (38-126); Amylase 49 U/L (30-110); Anion Gap 11.8 mEq/L (5-15); Aspartate Amino Transferase 24 U/L (14-36); Bilirubin,Total 0.4 mg/dl (0.2-1.3); Blood Urea Nitrogen 8 mg/dl (7-17); Calcium 8.7 mg/dl (8.4-10.2); Carbon Dioxide 27 mmol/L (22.0-30.0); Chloride 106 mmol/L (98-107); Estimated Glomerular Filt Rate 98 ml/min (>60); GFR (African American) 118 ML/MIN (>60); Globulin 2.2 g/dL (1.3-3.2); Glucose 70 mg/dl (74-100); Lipase 122 U/L (23-300); Potassium 3.8 mmoL/L (3.5-5.1); Sodium 141 mmol/L (136-145); Total Protein,Serum 6.5 g/dl (6.3-8.2)
== END 2024-09-09 23:59 | disposition home or self-care (01) ==
LOC: LAB.DROPOF 09-10 07:42
PROVIDERS: PCP Nurse Practitioner Family; Visit Provider Nurse Practitioner Family
DX: R11.2 Nausea with vomiting, unspecified (principal)
CPT/HCPCS: 80053; 82150; 83690; 85025

== ENCOUNTER 2024-10-07 19:14 | Outpatient (CLI) | payer OTHER, SELFPAY ==
[2024-10-07 19:29] LABS: Adenovirus,PCR Not Detected (NotDetected); Bordetella Pertussis Not Detected (NotDetected); Chlamydophila Pneumoniae, PCR Not Detected (NotDetected); Coronavirus 19, PCR Not Detected (NotDetected); Coronavirus 229E Not Detected (NotDetected); Coronavirus NL63 Not Detected (NotDetected); Coronavirus OC43 Not Detected (NotDetected); Coronovirus HKU1,PCR Not Detected (NotDetected); Human Metapneumovirus Not Detected (NotDetected); Influenza A, PCR Not Detected (NotDetected); Influenza AH1, 2009 Not Detected (NotDetected); Influenza AH1, PCR Not Detected (NotDetected); Influenza AH3,PCR Not Detected (NotDetected); Influenza B, PCR Not Detected (NotDetected); Mycoplasma Pneumoniae, PCR Not Detected (NotDetected); Parainfluenza 1, PCR Not Detected (NotDetected); Parainfluenza 2, PCR Not Detected (NotDetected); Parainfluenza 3, PCR Not Detected (NotDetected); Parainfluenza 4, PCR Not Detected (NotDetected); Respiratory Syncytial Virus Not Detected (NotDetected); Rhinovirus/Enterovirus Not Detected (NotDetected)
== END 2024-10-07 23:59 | disposition home or self-care (01) ==
LOC: LAB.DROPOF 19:15
PROVIDERS: PCP Nurse Practitioner Family; Visit Provider Nurse Practitioner Family
DX: R07.0 Pain in throat (principal); R53.83 Other fatigue; B34.9 Viral infection, unspecified
CPT/HCPCS: 87070; 87633

== ENCOUNTER 2025-03-04 12:16 | Outpatient (CLI) | payer OTHER, SELFPAY ==
[2025-03-04 12:42] LABS: Coronavirus 19, PCR Not Detected (NotDetected); Influenza A, PCR Not Detected (NotDetected); Influenza B, PCR Not Detected (NotDetected); Respiratory Syncytial Virus Not Detected (NotDetected)
[2025-03-04 15:10] LABS: Human Rhinovirus Detected (NotDetected)
== END 2025-03-04 23:59 | disposition home or self-care (01) ==
LOC: LAB.DROPOF 03-06 12:18
PROVIDERS: PCP Nurse Practitioner Family; Visit Provider Nurse Practitioner Family
DX: J02.9 Acute pharyngitis, unspecified (principal); R09.89 Other specified symptoms and signs involving the circulatory and respiratory systems; R05.9 Cough, unspecified; R52 Pain, unspecified; R50.9 Fever, unspecified
CPT/HCPCS: 87631